=== PATIENT | female | born 1965 | race Caucasian/White ===

== ENCOUNTER 2016-12-27 12:41 | Emergency (ER) | payer SELFPAY ==
[~2016-12-27] VITALS: Ht 180.3 cm; Wt 83.9 kg
--- NOTE | 2016-12-27 13:20 | NUR ---
PT REFSUED XRAY. PA MADE AWARE.
--- NOTE | 2016-12-27 13:44 | NUR ---
Patient does not wish to proceed with medical care recommended by [facility]. Patient given information related to possible complications, up to and including , which could occur as a result of leaving the hospital at this time. Patient verbalizes understanding of risks involved due to leaving against medical advice. Patient refused to sign AMA form as witnessed by PETROS Leyva and [facility] Officer [id number].
[2016-12-27 13:51] VITALS: BP 102/64
== END 2016-12-27 13:51 | disposition left against medical advice (07) ==
LOC: ER 12:44
DX: M25.571 Pain in right ankle and joints of right foot (principal)
CPT/HCPCS: 99283; A4606; Z7610